=== PATIENT | male | born 1975 | race Hispanic/Latino ===

== ENCOUNTER 2022-12-03 14:45 | Emergency (ER) | payer SELFPAY ==
[2022-12-03] MEDS ORDERED: Lidocaine 1% PF 5 ML VIAL ONE (15:31)
== END 2022-12-03 16:58 | disposition home or self-care (01) ==
LOC: ERS 14:45
DX: S01.81XA Laceration without foreign body of other part of head, initial encounter (principal); W22.03XA Walked into furniture, initial encounter
CPT/HCPCS: 12014; 70450; 70486; 72125

== ENCOUNTER 2022-12-10 11:06 | Emergency (ER) | payer SELFPAY | END 2022-12-10 12:50 | disposition home or self-care (01) | LOC: ERS 11:06 | DX: S01.81XD Laceration without foreign body of other part of head, subsequent encounter (principal); W18.30XD Fall on same level, unspecified, subsequent encounter ==